=== PATIENT | female | born 1995 | race Caucasian/White ===

== ENCOUNTER → 2021-10-24 15:37 | Outpatient (CLI) | payer OTHER, SELFPAY ==
[2021-10-24 16:04] LABS: Add Manual Diff / Slide Review NO; Basophils Absolute Auto 100 /uL (0-100); Basophils Percent Auto 0.5 % (0-2); Eosinophils Absolute Auto 100 /uL (0-450); Eosinophils Percent Auto 1.1 % (2-4); Hematocrit 37.7 % (36-46); Hemoglobin 13.1 g/dL (12.0-16.0); Lymphocytes Absolute Auto 2600 /uL (1100-4500); Lymphocytes Percent Auto 27.1 % (25-40); Mean Corpuscular HGB Conc 34.7 % (30-36); Mean Corpuscular Volume 89.3 fL (80-100); Monocytes Absolute Auto 500 /uL (0-900); Monocytes Percent Auto 5.2 % (3-14); Neutrophils Absolute Auto 6400 /uL (1500-7000); Neutrophils Percent Auto 66.1 % (50-75); Platelet Count 403 X10^3/uL (150-400); Red Blood Cell Count 4.23 X10^6/uL (4.0-5.2); White Blood Cell Count 9.7 X10^3/uL (4.5-11.0)
[2021-10-24 16:10] LABS: Hemoglobin A1C% w Est Avg Glu 7.8 % (4.0-6.0)
[2021-10-24 17:37] LABS: Alanine Aminotransferase 12 IU/L (<35); Albumin 4.1 g/dL (3.5-5.0); Albumin Globulin Ratio 1.4 (1.0-2.8); Alkaline Phosphatase 53 U/L (38-126); Aspartate Aminotransferase 16 IU/L (14-36); BUN Creatinine Ratio 22.7 (6-22); Bilirubin Total 0.8 mg/dL (0.2-1.3); Blood Urea Nitrogen 10 mg/dL (7-17); Calcium 10.1 mg/dL (8.4-10.2); Carbon Dioxide 27 mmol/L (22-32); Chloride 102 mmol/L (98-107); Estimated Glomerular Filt Rate > 60.0 mL/min (>60); Globulin 2.9 g/dL (1.7-4.1); Glucose 267 mg/dL (70-100); HEMOLYSIS < 15 (0-50); Potassium 4.3 mmol/L (3.4-5.1); Sodium 134 mmol/L (137-145)
[2021-10-24 18:07] LABS: TSH w/ Reflex to FT4 2.39 uIU/mL (0.47-4.68)
[2021-10-24 18:29] LABS: Urine N gonorrhoeae NOT DETECTED
[2021-10-24 18:50] LABS: Urine Chlamydia NOT DETECTED
[2021-10-25 06:32] LABS: RPR Screen Non Reactive (Non Reactive)
[2021-10-25 08:47] LABS: Varicella IgG Antibody >4000 index (Immune >165)
[2021-10-27 21:42] LABS: Rubella Antibody IgG 84.2 IU/mL (>15)
[2021-10-27 22:06] LABS: HIV 1 & 2 Ab/Ag 4th Gen Combo NEGATIVE (NEGATIVE); Hep C Virus Ab w/Reflex Quant NEGATIVE s/c (NEGATIVE)
[2021-10-30 17:54] LABS: Hepatitis B Surface Antigen NEGATIVE s/c (NEGATIVE)
== END ==
PROVIDERS: Referring Provider Obstetrics & Gynecology; Visit Provider Obstetrics & Gynecology
DX: O99.280 Endocrine, nutritional and metabolic diseases complicating pregnancy, unspecified trimester (principal); Z3A.09 9 weeks gestation of pregnancy; Z11.3 Encounter for screening for infections with a predominantly sexual mode of transmission; E10.9 Type 1 diabetes mellitus without complications; E03.9 Hypothyroidism, unspecified
CPT/HCPCS: 36415; 80053; 80055; 83036; 84443; 86787; 86803; 86850; 86900; 86901; 87389; 87491; 87591

== ENCOUNTER → 2021-10-27 14:08 | Outpatient (CLI) | payer OTHER, SELFPAY ==
[2021-10-27 15:10] LABS: Appearance Urine UA SL CLOUDY; Bilirubin Urine UA NEGATIVE (NEGATIVE); Color Urine UA YELLOW; Glucose Urine UA 2+ g/dL (Negative); Ketones Urine UA NEGATIVE (NEGATIVE); Leukocyte Esterase Urine UA NEGATIVE (NEGATIVE); Nitrite Urine UA NEGATIVE (Negative); Occult Blood Urine UA NEGATIVE (Negative); Protein Urine UA NEGATIVE (Negative); Urobilinogen Urine UA 0.2 E.U./dL (0.2)
[2021-10-27 15:15] LABS: pH Urine UA 5.5 (4.5-8.0)
[2021-10-27 15:56] LABS: Collection Time Urine 24 Hours; Protein (Total) Urine Random < 5 mg/dL (0-12); Total Volume Urine 1500 mL
[2021-10-27 15:57] LABS: Total Protein 24 Hour Urine < 75 mg/day (42-225)
== END ==
PROVIDERS: Referring Provider Obstetrics & Gynecology; Visit Provider Obstetrics & Gynecology
DX: E10.9 Type 1 diabetes mellitus without complications (principal)
CPT/HCPCS: 81003; 84156; 87086

== ENCOUNTER → 2021-10-28 10:52 | Outpatient (CLI) | payer OTHER, SELFPAY ==
--- NOTE | 2021-10-29 14:30 | DIAB.INIT ---
Initial Diabetes Education Assessment Name: Miracle Moore Date: 10/28/21 Time: 11a-12p Dx: Type 1 diabetes in Provider: Joe BRIDGETT:04/22/22. Miracle was originally scheduled for in person visit, but mistakenly thought this was a virtual appt. Due to the urgency of her diagnosis, we changed this visit to a virtual visit. She consents to the use of [employer] system to complete this visit. Miracle reports T1DM dx since age 20. Originally misdiagnosed with T2DM. She has a referral for specialty, but has not been scheduled yet. She uses a CGM but not currently using an insulin pump. States her endo in [place] would like to defer this to specialty at at this time. currently injecting 50u Lantus daily (30u HS and 20u in the afternoon). She is splitting this dose due to fear of lows at night, but she is still waking with BG >95. The main barriers seem to be education related. Miracle is injecting insulin more frequently than usually recommended, injecting anytime her BG is >180 with a sliding scale she found online. Not currently counting carbs. Not currently using I:C ratio. Also injecting 30 minutes AFTER she eats, increasing her risk for hypoglycemia. Endorses frequent lows almost daily. Day time lows 3-4 x per week, which may be r/t the frequent novolog injections. Night time lows decreased with splitting her lantus dose per her report. Treats with juice and sometimes chips. Seems one issue in Miracle's diabetes care is that she has been seen by multiple professionals in [facility] telling her a number of ways to manage. Physical Activity: Not discussed today Self-Monitoring Blood Glucose: Uses Dexcom CGM. Keeps in range time: 70-180. FBG reported 120-150 usually and 1 hr after meals 140-180. BG described as above target. Diabetes Medications: Novolo-20u daily Lantus 50u daily Pertinent Labs: 10/2021 HgA1c 7.8% H Past Medical History: (Last Updated 10/27/21 @ 13:23 by Navid Diaz MD) Anxiety (~10/2020) DKA (diabetic ketoacidosis) (~12/2020) IDDM (insulin dependent diabetes mellitus) (~2005) Neuropathy associated with endocrine disorder (~10/2020) [place] teeth extracted x4, conscious sedation, no issues. Intervention: This participant was very receptive. Provided appropriate educational handouts. Discussed the following topics: Completed intake assessment. Discussed barriers to care. Plans to contact potentially I:C ratio of 1:15 to start When to take insulin: 10-15 min prior to meal Impact of lantus on FBG Carb counting review and handouts emailed insulin correction review, emailed correction chart hypoglycemia tx review Created SMART goals for patient self-care and success. Goals: Try to eat protein with each meal and snack take insulin prior to meal 10-15 mins Use I:C ratio and carb counting to determine insulin dose Treat lows as discussed: Rule of 15 Follow-up: JOSE ANGEL ESCALONA follow-up in 1 week Miracle certainly needs higher specialty care. The hope is that she can schedule with reinaldo. She requires quite a bit of education. We discussed the need for in person visits. She has concerns about finances and gas cost. Will try to couple visits with OB visits. Daya Ribeiro RDN, [facility] Certified Diabetes Care and Public Information Relations Manager P: [phone] Thank you for this referral
== END ==
PROVIDERS: Referring Provider Obstetrics & Gynecology; Visit Provider Obstetrics & Gynecology
DX: O24.019 Pre-existing type 1 diabetes mellitus, in pregnancy, unspecified trimester (principal)
CPT/HCPCS: G0108

== ENCOUNTER → 2021-11-05 07:47 | Outpatient (CLI) | payer OTHER, SELFPAY ==
--- NOTE | 2021-11-05 07:49 | DI.US.S_ITS ---
PROCEDURE: US OB <= 14 WEEKS FETUS INDICATIONS: DATING. HISTORY OF TYPE 1 DIABETES. OUTSIDE/PRIOR DATING DATA: Last menstrual period (LMP): Unknown. LMP-based estimated date of delivery (BRIDGETT): Not applicable. First dating scan (date and location): Current study, 11/05/21. Estimated date of delivery (BRIDGETT) from first dating scan: 05/25/22. The calculations are made using the first-trimester ultrasound BRIDGETT of 05/25/22. TECHNIQUE: Real-time scanning was performed of the fetus and maternal pelvic organs, with image documentation. COMPARISON: None. FINDINGS: Embryo: An intrauterine is present including a single pole with an average crown-rump length of 4.37 cm corresponding to an 11 week two day plus or minus seven days gestation. There is detectable cardiac activity in the fetus at a rate of 160 beats per minute. A normal yolk sac is present. Heart rate: 160 Maternal organs: The cervix is closed. The uterus is anteverted. There is a fundal intrauterine gestational sac. A heterogeneous, but inactive perigestational hemorrhage is present along the anterior margin encompassing less than 10% of the sac circumference. Both ovaries appear normal. Possible right ovarian corpus luteum. Large postvoid residual in the maternal urinary bladder of 132 cc. IMPRESSION: 1. Single living intrauterine with a gestational age of 11 weeks two days by crown-rump length and estimated due date of 05/25/22. 2. Small inactive perigestational hemorrhage. 3. Large postvoid residual in the maternal urinary bladder. Consider cystitis. We strive to produce accurate, complete, and clear reports of imaging services. To assist us in improving patient care, this report was composed using standard report templates and voice recognition software. Therefore, it may contain abnormal punctuation, insertions and/or omissions. Occasional wrong-word or sound-alike substitutions may occur. Though we review the report and make efforts to correct it, we do recommend that the report be read carefully in proper context to recognize any text inaccuracies. Dictated by: Toya Downey M.D. on 11/05/2021 at 8:40 Approved by: Toya Downey M.D. on 11/05/2021 at 8:44
== END ==
PROVIDERS: PCP Obstetrics & Gynecology; Referring Provider Obstetrics & Gynecology; Visit Provider Obstetrics & Gynecology
DX: Z36.87 Encounter for antenatal screening for uncertain dates (principal); O24.011 Pre-existing type 1 diabetes mellitus, in pregnancy, first trimester; Z3A.11 11 weeks gestation of pregnancy
CPT/HCPCS: 76801; 76817

== ENCOUNTER → 2021-11-05 08:30 | Outpatient (CLI) | payer OTHER, SELFPAY ==
--- NOTE | 2021-11-05 09:54 | DIAB.FU ---
Follow-up Diabetes Education Assessment Name: Miracle Moore Date: 11/05/21 Time: 505-189q Dx: Type 1 diabetes in Provider: Joe BRIDGETT:[birth year]. Miracle presents today with , Flavio. States she has started taking Novolog before meals instead of after. Today she describes using a sliding scale (not correction scale). This seems to result in highs and lows, chasing blood sugars. She is running high in the evening. Her and her base her Lantus dose on her evening readings. States she often skips breakfast and eats q 3 hours after that. Has been practicing carb counting since last visit. Has cut out caffeine and sugared beverages. Today she describes a long history of high HgA1c results and repeat DKA events. Diet recall: Wake: 8-11a 12p: chicken strips and pasta 3p: triscuits or nuts or PB 630p: biscuits and gravy with carrots and green beans, chicken 9p: PB or pickle Physical Activity: Recently started walking daily for 15 mins in the snow. She is originally from [place] and enjoys this weather. Encouraged safety with activity. Self-Monitoring Blood Glucose: Brought dexcom and downloaded reports via [employer]. Seems that the reduced lantus from 50 u to 20-35u daily may be contributing to hyperglycemia late into grinder gear. She has significant highs in evening between 945p and 415pm. This may be related to inadequate lantus coverage. She worries that increases in Lanuts could cause lows at night. More likely that novolog and SSI would cause such hypo events. Reports indicate the followin day reports Target range set: 70-180 mg/dL Avg B Time in range (TIR): 37% High: 42% Very high: 20% low: <1% very low: <1% Diabetes Medications: Lantus 20-35u HS Novolog with SSI Pertinent Labs: 10/2021 HgA1c 7.8% H Past Medical History: (Last Updated 10/27/21 @ 13:23 by Navid Diaz MD) Anxiety (~10/2020) DKA (diabetic ketoacidosis) (~12/2020) IDDM (insulin dependent diabetes mellitus) (~2005) Neuropathy associated with endocrine disorder (~10/2020) [place] teeth extracted x4, conscious sedation, no issues. Intervention: This participant was very receptive. Provided appropriate educational handouts. Discussed the following topics: Recent blood sugar results and trends Action and duration of lantus vs novolog basing lantus off FBG and not current BG I:C ratio and correction vs SSI plate method, carb counting, carb recs per meal and snacks, pairing macronutrients, meal timing resources for carb counting: calorie sadaf, fooducate review of clarity reports and hyperglycemia trends as well as hypo how to use [employer] pasquale functions: adding exercise, carbs, insulin to reports Time in range and goal to increase Exercise for and BG mgmgnt, and safety Created SMART goals for patient self-care and success. Goals: Try to eat protein with each meal and snack- in progress take insulin prior to meal 10-15 mins- met Use I:C ratio and carb counting to determine insulin dose- in progress Treat lows as discussed: Rule of 15- in progress Try to eat q 3-4 hours- new Add events to dexcom pasquale: exercise, insulin, carb intake- new try to walk or exercise safely daily- new Try I:C ratio of 1:15 - new Try 30u Lantus q night - new Follow-up: JOSE ANGEL ESCALONA follow-up WednesdayNov 14 prior to OB apt Miracle certainly needs higher specialty care. The hope is that she can schedule with [facility]. She requires quite a bit of education given the different information she has acquired in different states. We discussed the need for in person visits. She has concerns about finances and gas cost. Will continue to try to couple visits with OB visits. Daya Ribeiro RDN, [facility] Certified Diabetes Care and Retail Store Clerk P: [phone] Thank you for this referral
== END ==
PROVIDERS: PCP Obstetrics & Gynecology; Referring Provider Obstetrics & Gynecology; Visit Provider Obstetrics & Gynecology
DX: O24.012 Pre-existing type 1 diabetes mellitus, in pregnancy, second trimester (principal)
CPT/HCPCS: G0108

== ENCOUNTER → 2021-11-14 12:50 | Outpatient (CLI) | payer OTHER, SELFPAY ==
--- NOTE | 2021-11-14 17:24 | DIAB.MNT ---
Addendum entered by Daya Ribeiro 11/18/21 17:33: Called today to review BG over the phone. No answer today. LVM encouraging call back. We have f/u scheduled this as well. Original Note: Initial Diabetes Medical Nutrition Therapy Assessment Name: Miracle Moore Date: 11/11/21 Time: 1-230p Dx: Type I Diabetes in BRIDGETT: 05/25/22 Miracle presents today with , Flavio. States her Bg have much improved. No longer using SSI she printed from the internet. In reviewing her dexcom, they have improved but still high at night. States she is covering with correction and I:C of 1:15 as discussed, but also endorses almost 100g carbs at dinner at times. Difficult to determine if she is having hyperglycemia at night due to high carb intake, needing a tighter I:C ratio, or if Lantus is wearing off by night. Her endo has retired and has not received a call for new endo. States it is difficult to get through due to [facility] process. Reports some nausea r/t . Still able to eat, but eating schedule indicates low intake during the day and larger portions at night. States this is how her appetite normally is. Also endorses recent dental work, impacting ability to eat. This has improved. Diet Recall: 12p: hot dog no bun 3p: peanut butter 7p: yasmine soda noodles OR hamburger helper with rice OR mac n cheese box with hot dogs (68-100g CHO) 9p: peanut butter or pickles Anthropometrics: Wt: 162# Prepreg wt: 145# Physical Activity: No program. Some inconsistent walking. Has a dog she likes to walk. has a bad knee, and she does not like to walk alone. Self-Monitoring Blood Glucose: Still above targets for but much improved. Reports FBG more recently 120-150. Plans to see [facility] specialist on 11/27/21. States she has had a low since last visit and tx with juice. Unclear etiology of low exactly. Ran out of juice at her house, but she has sugar and glucose tabs. Today : Target range set: 70-180 mg/dL Time in range (TIR): 53% High: 34% Very high: 12% low: <1% very low: <1% Last visit: Target range set: 70-180 mg/dL Avg B Time in range (TIR): 37% High: 42% Very high: 20% low: <1% very low: <1% Diabetes Medications: Lantus 30-35u HS Novolog I:C ratio 1:15 c correction 1:50 Pertinent Labs: 10/2021 HgA1c 7.8% H Past Medical History: (Last Updated 11/06/21 @ 09:13 by Breanna You RN) Anxiety (~10/2020) Chicken pox (~1999) DKA (diabetic ketoacidosis) (~12/2020) IDDM (insulin dependent diabetes mellitus) (~2015) Neuropathy associated with endocrine disorder (~10/2020) [place] teeth extracted x4, conscious sedation, no issues. Nutrition Rx: Carbohydrates: Meal: B: 30g L: 45-60g D: 45-60g Snack: 15-30g Nutrition Diagnosis: - Excessive CHO intake r/t nutrition knowledge deficit and low intake earlier in the day aeb diet recall - Physical inactivity r/t stage of change aeb pt report Intervention: This participant was very receptive. Provided appropriate educational handouts. Discussed the following topics: Reviewed tx for lows and substitutes for juice Discussed increasing lantus to reduce FBG Reviewed BG goals for Reviewed diet, carb counting, spreading carbs through the day, pairing macros, and built a meal plan based on her food preferences Encouraged safe physical activity Created SMART goals for patient self-care and success. Goals: Try to eat protein with each meal and snack- in progress Use I:C ratio and carb counting to determine insulin dose- met Treat lows as discussed: Rule of 15- in progress Try to eat q 3-4 hours- in progress Add events to [employer] pasquale: exercise, insulin, carb intake- in progress try to walk or exercise safely daily- not met Try I:C ratio of 1:15 - met Try 30u Lantus q night - met Reduce carbs at dinner- new Increase lantus 1-2u q 2-3 days until FBG in range- new Walk 30min 2-3 x per week- new Purchase more juice - new Follow-up: JOSE ANGEL ESCALONA follow-up on Wednesday over the phone and 1:1 next Daya Ribeiro RDN, [facility] Certified Diabetes Care and Structural Steel Fitter P: [phone] Thank you for this referral
== END ==
PROVIDERS: PCP Obstetrics & Gynecology; Referring Provider Obstetrics & Gynecology; Visit Provider Obstetrics & Gynecology
DX: O24.011 Pre-existing type 1 diabetes mellitus, in pregnancy, first trimester (principal)
CPT/HCPCS: 97802

== ENCOUNTER → 2021-11-20 14:46 | Outpatient (CLI) | payer OTHER, SELFPAY ==
--- NOTE | 2021-11-20 14:49 | DIAB.FU ---
Follow-up Diabetes Education Assessment Name: Miracle Moore Date: 11/20/21 Time: 2-245p Dx: Type I Diabetes in BRIDGETT: 05/25/22 Weeks: 13-14 Miracle presents for virtual follow-up using [employer] platform. Miracle consented to participating in this virtual visit. States she has not been feeling well. Endorses cold symptoms though also reports increased frequency of urination. BG have continued to improve. Has h/o of DKA with unknown upper UTI per her report. Has ketone strips at home but has not tested. States she has been working on reducing carb portions at dinner. increased pro and vegetable intake. Incorporating breakfast now. Has been using insulin to carb 1:15 ratio for breakfast and lunch ; 1:10 for dinner given elevations in evening. She is using much more Lantus than Novolog daily currently. FBG continue above target in the 150-160s, one readings of 90. Has recently increased Lanuts to 34u and plans to increase tonight by 2u. States that Flavio, , gave too much Novolog the other night. May benefit from more communication about insulin doses. Has been worried about how hyperglycemia can impact baby. Had MFM visit yesterday with ultrasound and baby is healthy. Has [facility] specialist appt on 12/02. Physical Activity: Has started walking 2 x this week. Self-Monitoring Blood Glucose: Readings cont above target but cont to improve. Today: Target range set: 70-180 mg/dL Time in range (TIR): 59% High: 30% Very high: 9% low: <1% very low: <1% 11/14/21: Target range set: 70-180 mg/dL Time in range (TIR): 53% High: 34% Very high: 12% low: <1% very low: <1% 11/05/21: Target range set: 70-180 mg/dL Avg B Time in range (TIR): 37% High: 42% Very high: 20% low: <1% very low: <1% Diabetes Medications: Lantus 34u HS Novolog I:C ratio 1:15 breakfast and lunch; 1:10 dinner c correction 1:50 Pertinent Labs: 10/2021 HgA1c 7.8% H Past Medical History: (Last Updated 11/06/21 @ 09:13 by Breanna You RN) Anxiety (~10/2020) Chicken pox (~1999) DKA (diabetic ketoacidosis) (~12/2020) IDDM (insulin dependent diabetes mellitus) (~2015) Neuropathy associated with endocrine disorder (~10/2020) [place] teeth extracted x4, conscious sedation, no issues. Intervention: This participant was very receptive. Provided appropriate educational handouts. Discussed the following topics: Recent blood sugar results and trends BG goals for and titrating insulin to meet needs FBG: <95 ; 1hr: <140; 2hr: <120 checking ketones and when to call provider carb intake and diet changes Created SMART goals for patient self-care and success. Goals: Reduce carbs at dinner- met Increase lantus 1-2u q 2-3 days until FBG in range- met Walk 30min 2-3 x per week- met/in progress Purchase more juice - met Adjust morning/lunch I:C (1:10 or 1:12)to meet pc BG goals- new Check urine ketones- new Discuss insulin doses with prior to injection- new Follow-up: JOSE ANGEL ESCALONA follow-up in 1 week virtually Daya Ribeiro RDN, [facility] Certified Diabetes Care and Electro Winning Operator P: [phone] Thank you for this referral
== END ==
PROVIDERS: PCP Obstetrics & Gynecology; Referring Provider Obstetrics & Gynecology; Visit Provider Obstetrics & Gynecology
DX: O24.011 Pre-existing type 1 diabetes mellitus, in pregnancy, first trimester (principal); Z3A.13 13 weeks gestation of pregnancy
CPT/HCPCS: G0108

== ENCOUNTER → 2021-12-16 10:05 | Outpatient (CLI) | payer OTHER, SELFPAY ==
[2021-12-16 11:12] LABS: Hemoglobin A1C% w Est Avg Glu 7.6 % (4.0-6.0)
[2021-12-18 20:45] LABS: AFP Value 53.3 ng/mL (.); Gestational Age Ultrasound (.); Insulin Dep Diabetes No (.); OSBR Risk 1IN 3048 (.); Results Report (.); Test Results *Screen Negative* (.)
== END ==
PROVIDERS: PCP Obstetrics & Gynecology; Referring Provider Obstetrics & Gynecology; Visit Provider Obstetrics & Gynecology
DX: Z34.82 Encounter for supervision of other normal pregnancy, second trimester (principal); Z3A.17 17 weeks gestation of pregnancy
CPT/HCPCS: 36415; 82105; 83036

== ENCOUNTER 2022-04-01 15:25 | Outpatient (CLI) | payer OTHER, SELFPAY | END 2022-04-01 16:25 | disposition home or self-care (01) | LOC: LABOR 15:51 → OB 04-02 07:13 | PROVIDERS: PCP Obstetrics & Gynecology; Referring Provider Obstetrics & Gynecology; Visit Provider Obstetrics & Gynecology | DX: O24.013 Pre-existing type 1 diabetes mellitus, in pregnancy, third trimester (principal); O47.03 False labor before 37 completed weeks of gestation, third trimester; Z3A.32 32 weeks gestation of pregnancy | CPT/HCPCS: 59025; G0378; G0379 ==

== ENCOUNTER 2022-04-06 10:19 | Outpatient (CLI) | payer OTHER, SELFPAY ==
--- NOTE | 2022-04-06 11:00 | P.TNLD_ITS ---
Visit Information Visit Information Date of evaluation: 04/06/22 Primary OB Provider: Navid Diaz On-call OB Provider: Jolie Manuel Reason for Evaluation: Yes non-stress test non-stress test reason: diabetes Vital Signs Vital Signs: BP 117/72, P 90 T 36.5 [facility] Medical History (Updated 04/06/22 @ 11:06 by Jolie Manuel MD) Anxiety (~10/2020) Chicken pox (~1999) DKA (diabetic ketoacidosis) (~12/2020) IDDM (insulin dependent diabetes mellitus) (~2015) Neuropathy associated with endocrine disorder (~10/2020) Surgical History (Updated 10/23/21 @ 18:18 by Breanna You RN) [place] teeth extracted Family History (Updated 11/06/21 @ 09:18 by Breanna You RN) Father Diabetes mellitus Colon cancer Brother History of heart disease Scoliosis Hypertension Sister Diabetes mellitus Thyroid disease Grandfather Parkinson's disease Grandmother Dementia Pressure ulcer Grandfather Colon cancer Mother Healthy female adult Grandmother Type 2 diabetes mellitus Social History marital status: number of children: 0 household members: spouse lives independently: Yes caregiver/support person: No housing: apartment pets and animals: Yes (2 dogs: 1 is a little tempermental- aware.) education level: high school occupational status: unemployed current occupational exposures/hazards: No star/lutheran: Sabianism special star needs: No seatbelt use: always helmet use: Yes water heater temp set < 120 deg: Yes working smoke detector in home: Yes fire extinguisher in home: Yes carbon monox detector in home: Yes firearms in home: Yes do you feel safe at home: Yes Smoking Status: Never smoker second hand exposure: No ( vaping with non-nicotine products in the house but not near her. ) alcohol intake: former substance use type: does not use during the past year weight has: decreased > 10 lbs well-balanced diet: about half the time caffeine: No Type(s) of exercise: walking and normal ROM and activity frequency: daily duration: 15-30 minutes/day Evaluation Evaluation Baseline heart rate: 140 Variability: Moderate (11-25) monitor accelerations: Present Monitor Decelerations: Absent Contraction Frequency (minutes): 0 Category of Tracing: Reactive Diagnosis, Plan/Disposition Final Diagnosis (1) Type 1 diabetes mellitus: Status: Acute (2) 33 weeks gestation of : Status: Acute Plan/Disposition Plan: Reactive NST. Continue twice weekly NSTs, weeekly OB appointments OB Disposition: home
== END 2022-04-06 11:04 | disposition home or self-care (01) ==
LOC: LABOR 10:21 → OB 04-08 14:27
PROVIDERS: PCP Obstetrics & Gynecology; Referring Provider Obstetrics & Gynecology; Visit Provider Obstetrics & Gynecology
DX: O24.013 Pre-existing type 1 diabetes mellitus, in pregnancy, third trimester (principal); Z3A.33 33 weeks gestation of pregnancy
CPT/HCPCS: 59025; G0378; G0379

== ENCOUNTER 2022-04-09 12:38 | Outpatient (CLI) | payer OTHER, SELFPAY ==
--- NOTE | 2022-04-09 13:17 | DI.US.S_ITS ---
PROCEDURE: US OB BIOPHYSICAL PROFILE INDICATIONS: DECEL ON NONSTRESS TEST OUTSIDE/PRIOR DATING DATA: Last menstrual period (LMP): Not known LMP-based estimated date of delivery (BRIDGETT): Not applicable First dating scan (date and location): November 05, 2021. Estimated date of delivery (BRIDGETT) from first dating scan: May 25, 2022 The calculations are made using the ultrasound BRIDGETT of May 25, 2022. TECHNIQUE: Real-time scanning was performed of the fetus for biophysical profile, with image documentation. Color and pulse Doppler interrogation was also performed of the umbilical artery near its insertion into the placenta. Endovaginal scanning: Perform COMPARISON: None. FINDINGS: General: A single living intrauterine gestation is present. Presentation: Breech. Placenta: Placental position is anterior , without previa. Amniotic fluid index: 12.7 cm, normal range is 5-24 cm. Single deepest vertical pocket is 4.8 cm. heart rate: 152 beats per minute. Maternal cervical canal: Not visualized. Estimated gestational age from initial scan: 33 weeks 3 days Biophysical profile: Tone: 2 points. Movement: 2 points. Respiration: 2 points. Largest pocket of fluid: 2 points. Umbilical artery Doppler: SD ratios 3.2, 3.2 IMPRESSION: 1. Single living intrauterine . 2. Biophysical profile score 8/8. 3. Normal cord Doppler. 4. Normal amniotic fluid index. Dictated by: Lucía Dudley MD, PhD on 04/09/2022 at 14:15 Approved by: Lucía Dudley MD, PhD on 04/09/2022 at 14:18
--- NOTE | 2022-04-09 14:24 | PM.OBTRLD ---
Visit Information Visit Information Date of evaluation: 04/09/22 Primary OB Provider: Navid Diaz Reason for Evaluation: Yes non-stress test Comments/Additional reasons for admission: Type 1 diabetes, IUP 33+ weeks EGA Vital Signs Vital Signs: 117/71, P=88, 35.8 [facility] Medical History (Updated 04/09/22 @ 14:20 by Navid Diaz MD) Anxiety (~10/2020) Chicken pox (~1999) DKA (diabetic ketoacidosis) (~12/2020) IDDM (insulin dependent diabetes mellitus) (~2015) Neuropathy associated with endocrine disorder (~10/2020) Surgical History (Updated 10/23/21 @ 18:18 by Breanna You RN) [place] teeth extracted Family History (Updated 11/06/21 @ 09:18 by Breanna You RN) Father Diabetes mellitus Colon cancer Brother History of heart disease Scoliosis Hypertension Sister Diabetes mellitus Thyroid disease Grandfather Parkinson's disease Grandmother Dementia Pressure ulcer Grandfather Colon cancer Mother Healthy female adult Grandmother Type 2 diabetes mellitus Social History marital status: number of children: 0 household members: spouse lives independently: Yes caregiver/support person: No housing: apartment pets and animals: Yes (2 dogs: 1 is a little tempermental- aware.) education level: high school occupational status: unemployed current occupational exposures/hazards: No star/zoroastrian: [employer] special star needs: No seatbelt use: always helmet use: Yes water heater temp set < 120 deg: Yes working smoke detector in home: Yes fire extinguisher in home: Yes carbon monox detector in home: Yes firearms in home: Yes do you feel safe at home: Yes Smoking Status: Never smoker second hand exposure: No ( vaping with non-nicotine products in the house but not near her. ) alcohol intake: former substance use type: does not use during the past year weight has: decreased > 10 lbs well-balanced diet: about half the time caffeine: No Type(s) of exercise: walking and normal ROM and activity frequency: daily duration: 15-30 minutes/day Review of Systems Review of Systems Narrative: Problem-specific ROS positives included in HPI Exam HENMT Head: normal to inspection, normocephalic and atraumatic Face and sinus: face symmetric Eyes General: appearance normal, both eyes and all related structures Neck Neck: normal visual inspection Resp Effort & Inspection: normal respiratory effort and able to speak in complete sentences GI Inspection: normal to inspection Palpation: soft and no hepatosplenomegaly External Female Exam: other (Deferred) Uterus Location (Fundal Height): 34 Presentation: vertex Estimated Weight (lbs): 4 Extrem Right lower extremity: normal to inspection Psych Appearance: grossly normal Mental Status: mental status grossly normal Speech and Movement: speech and movement normal Mood: congruent mood Affect: normal affect Attitude: cooperative Thought Process: normal Thought Content: normal Judgment: judgment good Evaluation Evaluation Baseline heart rate: 145 Variability: Moderate (11-25) monitor accelerations: Present Monitor Decelerations: Late (A single deceleration w/ late morphology @ 1258.) Category of Tracing: Reactive Status: Category l Comments: BPP 8/8, Dopplers normal. No additional decelerations noted after the single deceleration from 145 down to 120 BPM w/ prolonged contraction @ 1258 PM. Diagnosis, Plan/Disposition Final Diagnosis (1) Type 1 diabetes mellitus: Status: Acute (2) : Status: Acute Plan/Disposition Plan: Continue twice weekly antepartum testing with induction/delivery planned for [facility] T[facility]. OB Disposition: home
== END 2022-04-09 14:10 | disposition home or self-care (01) ==
LOC: LABOR 13:51 → OB 04-10 11:36
PROVIDERS: Referring Provider Obstetrics & Gynecology; Visit Provider Obstetrics & Gynecology
DX: O24.013 Pre-existing type 1 diabetes mellitus, in pregnancy, third trimester (principal); Z3A.33 33 weeks gestation of pregnancy
CPT/HCPCS: 59025; 59050; 76819; 76820; G0378; G0379

== ENCOUNTER 2022-04-13 14:40 | Outpatient (CLI) | payer OTHER, SELFPAY ==
--- NOTE | 2022-04-15 06:16 | PM.OBTRLD ---
Visit Information Visit Information Date of evaluation: 04/13/22 Primary OB Provider: Navid Diaz On-call OB Provider: Anna Akbar Reason for Evaluation: Yes non-stress test non-stress test reason: diabetes (Type 1) [facility] Medical History (Updated 04/09/22 @ 14:20 by Navid Diaz MD) Anxiety (~10/2020) Chicken pox (~1999) DKA (diabetic ketoacidosis) (~12/2020) IDDM (insulin dependent diabetes mellitus) (~2015) Neuropathy associated with endocrine disorder (~10/2020) Surgical History (Updated 10/23/21 @ 18:18 by Breanna You, ARTURO) [place] teeth extracted Family History (Updated 11/06/21 @ 09:18 by Breanna You RN) Father Diabetes mellitus Colon cancer Brother History of heart disease Scoliosis Hypertension Sister Diabetes mellitus Thyroid disease Grandfather Parkinson's disease Grandmother Dementia Pressure ulcer Grandfather Colon cancer Mother Healthy female adult Grandmother Type 2 diabetes mellitus Social History marital status: number of children: 0 household members: spouse lives independently: Yes caregiver/support person: No housing: apartment pets and animals: Yes (2 dogs: 1 is a little tempermental- aware.) education level: high school occupational status: unemployed current occupational exposures/hazards: No star/alevism: Roman Catholic special star needs: No seatbelt use: always helmet use: Yes water heater temp set < 120 deg: Yes working smoke detector in home: Yes fire extinguisher in home: Yes carbon monox detector in home: Yes firearms in home: Yes do you feel safe at home: Yes Smoking Status: Never smoker second hand exposure: No ( vaping with non-nicotine products in the house but not near her. ) alcohol intake: former substance use type: does not use during the past year weight has: decreased > 10 lbs well-balanced diet: about half the time caffeine: No Type(s) of exercise: walking and normal ROM and activity frequency: daily duration: 15-30 minutes/day Evaluation Evaluation Baseline heart rate: 135 Variability: Moderate (11-25) monitor accelerations: Present Monitor Decelerations: Absent Contraction Frequency (minutes): 8 Uterine Contraction Intensity: Mild Category of Tracing: Reactive Diagnosis, Plan/Disposition Plan/Disposition Plan: Assessment: 26-year-old 2 para 0 at 34-,2/7 weeks gestation with type 1 diabetes Reactive nonstress test Occasional contractions, patient not feeling Plan: Discharge to home kick counts Follow-up with Dr. Diaz as scheduled OB Disposition: home
== END 2022-04-13 15:37 | disposition home or self-care (01) ==
LOC: LABOR 15:06 → OB 04-15 10:36
PROVIDERS: Referring Provider Obstetrics & Gynecology; Visit Provider Obstetrics & Gynecology
DX: O24.013 Pre-existing type 1 diabetes mellitus, in pregnancy, third trimester (principal); E10.9 Type 1 diabetes mellitus without complications; Z3A.34 34 weeks gestation of pregnancy
CPT/HCPCS: 59025; G0378; G0379

== ENCOUNTER 2022-04-16 12:34 | Outpatient (CLI) | payer OTHER, SELFPAY ==
--- NOTE | 2022-04-16 13:04 | P.TNLD_ITS ---
Visit Information Visit Information Date of evaluation: 04/16/22 Primary OB Provider: Navid Diaz On-call OB Provider: Navid Diaz Reason for Evaluation: Yes non-stress test Comments/Additional reasons for admission: Twice weekly NST's due to Type 1 DM [facility] Medical History (Updated 04/29/22 @ 15:19 by Navid Diaz MD) Anxiety (~10/2020) Chicken pox (~1999) DKA (diabetic ketoacidosis) (~12/2020) IDDM (insulin dependent diabetes mellitus) (~2015) Neuropathy associated with endocrine disorder (~10/2020) Surgical History (Updated 10/23/21 @ 18:18 by Breanna You RN) [place] teeth extracted Family History (Updated 11/06/21 @ 09:18 by Breanna You RN) Father Diabetes mellitus Colon cancer Brother History of heart disease Scoliosis Hypertension Sister Diabetes mellitus Thyroid disease Grandfather Parkinson's disease Grandmother Dementia Pressure ulcer Grandfather Colon cancer Mother Healthy female adult Grandmother Type 2 diabetes mellitus Social History marital status: number of children: 0 household members: spouse lives independently: Yes caregiver/support person: No housing: apartment pets and animals: Yes (2 dogs: 1 is a little tempermental- aware.) education level: high school occupational status: unemployed current occupational exposures/hazards: No star/faith: Pentecostalism special star needs: No seatbelt use: always helmet use: Yes water heater temp set < 120 deg: Yes working smoke detector in home: Yes fire extinguisher in home: Yes carbon monox detector in home: Yes firearms in home: Yes do you feel safe at home: Yes Smoking Status: Never smoker second hand exposure: No ( vaping with non-nicotine products in the house but not near her. ) alcohol intake: former substance use type: does not use during the past year weight has: decreased > 10 lbs well-balanced diet: about half the time caffeine: No Type(s) of exercise: walking and normal ROM and activity frequency: daily duration: 15-30 minutes/day Evaluation Evaluation Baseline heart rate: 135 Variability: Moderate (11-25) monitor accelerations: Present Monitor Decelerations: Absent Category of Tracing: Reactive Status: Category l Diagnosis, Plan/Disposition Final Diagnosis (1) GBS (group B Streptococcus carrier), +RV culture, currently : Status: Acute (2) Peripheral neuropathy due to metabolic disorder: Status: Acute (3) Type 1 diabetes mellitus: Status: Acute (4) : Status: Acute
== END 2022-04-16 13:11 | disposition home or self-care (01) ==
LOC: LABOR 12:54 → OB 04-20 10:50
PROVIDERS: Referring Provider Obstetrics & Gynecology; Visit Provider Obstetrics & Gynecology
DX: O24.013 Pre-existing type 1 diabetes mellitus, in pregnancy, third trimester (principal); E10.9 Type 1 diabetes mellitus without complications; Z3A.34 34 weeks gestation of pregnancy
CPT/HCPCS: 59025; G0378; G0379

== ENCOUNTER 2022-04-17 09:14 | Emergency (ER) | payer OTHER, SELFPAY ==
[2022-04-17 09:18] VITALS: BP 117/71; PULSE 81; RESP 16; TEMP 36.2; O2SAT 100; BMI 30.2
[2022-04-17 10:05] LABS: Bacteria Urine None Seen; Culture Indicated Urine Cult Not Indicated; RBC Urine None Seen (0-5/HPF); Squamous Epithelial Cell Urine 5-10 /HPF (0-5/HPF); WBC Urine 0-1/HPF (0-5/HPF)
[2022-04-17 10:16] VITALS: BP 124/77; PULSE 73; RESP 18; O2SAT 97
[2022-04-17 10:30] VITALS: BP 122/76; PULSE 72; RESP 13; O2SAT 98
--- NOTE | 2022-04-17 10:38 | ED.GENADULT ---
HPI - General Adult General Chief complaint: Diabetic Problem Stated complaint: Prabhakar blood sugar 35 weeks Time Seen by Provider: 04/17/22 10:22 Source: patient Mode of arrival: Ambulatory History of Present Illness HPI narrative: Patient is a 26-year-old female history of insulin-dependent diabetes, apparently 34 weeks and 4 days presenting today with elevated glucose. Says yesterday which she was seen evaluated by OBGYN diagnosed with a yeast infection. However last night her continuous glucose monitor said that her glucose was in the 200s. She woke up and gave herself insulin multiple times which is abnormal. She denies any nausea vomiting or abdominal pain. She has previously been in DKA but does not feel like she is in DKA now. Related Data Home Medications Medication Instructions Recorded Confirmed prenrocio.vits,georgiana,[id number] 1 tab PO DAILY 10/23/21 03/11/22 insulin aspart U-100 100 unit/mL 4 - 8 unit SUBCUT TID PRN 11/06/21 03/11/22 (3 mL) subcutaneous pen (Novolog Flexpen U-100 Insulin aspart) insulin glargine 100 unit/mL 35 unit SUBCUT .hs 11/06/21 03/11/22 subcutaneous solution (Lantus U-100 Insulin) Previous Rx's Medication Instructions Recorded ondansetron 4 mg disintegrating 4 mg PO Q8H nausea #20 tabs 11/17/21 tablet metoclopramide HCl 10 mg tablet 10 mg PO Q6H PRN nausea and 12/16/21 (Reglan) vomiting #60 tabs fluconazole 150 mg tablet 150 mg PO Q3D 2 doses #2 tabs 04/16/22 (Diflucan) Allergies Allergy/AdvReac Type Severity Reaction Status Date / Time clindamycin AdvReac Severe Vomiting Verified 04/17/22 11:07 Review of Systems Review of Systems Narrative: GENERAL: Denies chills, fatigue, malaise, fever, sweats, travel HEENT: Denies sinus pain, ear pain, sore throat, difficulty swallowing, neck pain RESPIRATORY: Denies dyspnea, cough, wheezing, hemoptysis, sputum. CARDIOVASCULAR: Denies chest pain, palpitations, orthopnea, edema GASTROINTESTINAL: Denies nausea, vomiting, abdominal pain, diarrhea, constipation, melena. : Denies dysuria, frequency, incontinence, hematuria, urinary retention, flank pain. MUSCULOSKELETAL: Denies weakness, joint pain, or bony pain SKIN: No rash, no erythema, no pruritus NEUROLOGIC: Denies weakness, dizziness, headache, numbness, change in speech, confusion PSYCHIATRIC: No concerning psychosocial issues. 12 point review of systems is negative except for those stated above and HPI Patient History Medical History (Updated 04/17/22 @ 12:09 by Yolande Lujan DO) Anxiety (~10/2020) Chicken pox (~1999) DKA (diabetic ketoacidosis) (~12/2020) IDDM (insulin dependent diabetes mellitus) (~2015) Neuropathy associated with endocrine disorder (~10/2020) Surgical History (Updated 10/23/21 @ 18:18 by Breanna Yuo RN) [place] teeth extracted Family History (Updated 11/06/21 @ 09:18 by Breanna You RN) Father Diabetes mellitus Colon cancer Brother History of heart disease Scoliosis Hypertension Sister Diabetes mellitus Thyroid disease Grandfather Parkinson's disease Grandmother Dementia Pressure ulcer Grandfather Colon cancer Mother Healthy female adult Grandmother Type 2 diabetes mellitus Social History marital status: number of children: 0 household members: spouse lives independently: Yes caregiver/support person: No housing: apartment pets and animals: Yes (2 dogs: 1 is a little tempermental- aware.) education level: high school occupational status: unemployed current occupational exposures/hazards: No star/anglican: Worship special star needs: No seatbelt use: always helmet use: Yes water heater temp set < 120 deg: Yes working smoke detector in home: Yes fire extinguisher in home: Yes carbon monox detector in home: Yes firearms in home: Yes do you feel safe at home: Yes Smoking Status: Never smoker second hand exposure: No ( vaping with non-nicotine products in the house but not near her. ) alcohol intake: former substance use type: does not use during the past year weight has: decreased > 10 lbs well-balanced diet: about half the time caffeine: No Type(s) of exercise: walking and normal ROM and activity frequency: daily duration: 15-30 minutes/day Smoking Status: Never smoker alcohol intake frequency: holidays/special occasions only Substance Use Type: does not use Exam Initial Vital Signs Initial Vital Signs: Vital Signs Temperature 97.1 F L 04/17/22 09:18 Pulse Rate 81 04/17/22 09:18 Respiratory Rate 16 04/17/22 09:18 Blood Pressure 117/71 04/17/22 09:18 Pulse Oximetry 100 04/17/22 09:18 Oxygen Delivery Method 04/17/22 09:18 GENERAL: Alert well-appearing 26 year female and in no acute distress. HEENT: Head atraumatic,EOMI, pupils reactive, face symmetric, moist mucous membranes CARDIOVASCULAR: Regular rate and rhythm without murmurs, rubs or gallops. RESPIRATORY: Breath sounds equal bilaterally, no wheezes rales or rhonchi. ABDOMEN: Soft, gravid nontender : No CVA tenderness EXTREMITIES: Normal range of motion, no clubbing or edema. Neurovascularly intact NEUROLOGICAL: Alert and oriented x4 no cranial nerve deficits SKIN: Warm, dry, no laceration, no petechiae, no rashes or lesions. Course Orders Ordered: ED Orders 04/17/22 10:54 CBC Auto Diff [Complete Blood Count AUTO DIFF] Stat CMP [Comprehensive Metabolic Panel] Stat Discontinued Medications Sodium Chloride (Normal Saline 0.9%) 1,000 mls @ 1,000 mls/hr IV BOLUS ONE Stop: 04/17/22 11:44 Last Infusion: 04/17/22 12:24 Dose: 0 mls/hr Documented By: Admin: 04/17/22 11:01 Dose: 1,000 mls/hr Documented By: KB Vital Signs Vital signs: Vital Signs - 8 hr 04/17/22 11:05 04/17/22 11:13 04/17/22 11:30 Pulse Rate 69 68 Respiratory Rate 12 14 Blood Pressure 137/88 143/86 H Pulse Oximetry 97 100 Oxygen Delivery Method Room Air 04/17/22 11:30 Pulse Rate 71 Respiratory Rate 14 Blood Pressure Pulse Oximetry 99 Oxygen Delivery Method Medical Decision Making Lab Data Result diagrams: 04/17/22 10:54 04/17/22 10:54 Labs: Lab Results 04/17/22 04/17/22 04/17/22 Range/Units 09:25 10:54 10:54 WBC 13.5 H (4.5-11.0) X10^3/uL RBC 3.62 L (4.0-5.2) X10^6/uL Hgb 10.9 L (12.0-16.0) g/dL Hct 31.9 L (36-46) % MCV 88.2 (80-100) fL MCH 30.1 (26-34) PG MCHC 34.1 (30-36) % RDW 13.1 (11.6-14.8) % Plt Count 303 (150-400) X10^3/uL Neut % (Auto) 77.1 H (50-75) % Lymph % (Auto) 16.2 L (25-40) % [place] % (Auto) 5.3 (3-14) % Eos % (Auto) 0.9 L (2-4) % Baso % (Auto) 0.5 (0-2) % Neut # (Auto) 85317 H (0027-7072) /uL Lymph # (Auto) 2200 (9186-0399) /uL [place] # (Auto) 700 (0-900) /uL Eos # (Auto) 100 (0-450) /uL Baso # (Auto) 100 (0-100) /uL Sodium 134 L (137-145) mmol/L Potassium 3.9 (3.4-5.1) mmol/L Chloride 105 (98-107) mmol/L Carbon Dioxide 27 (22-32) mmol/L BUN 8 (7-17) mg/dL Creatinine 0.52 (0.52-1.04) mg/dL Estimated GFR > 60 (>60) mL/min BUN/Creatinine Ratio 15.4 (6-22) Glucose 150 H (70-100) mg/dL Calcium 8.3 L (8.4-10.2) mg/dL Total Bilirubin 0.5 (0.2-1.3) mg/dL AST 17 (14-36) IU/L ALT 12 (<35) IU/L Alkaline Phosphatase 75 (38-126) U/L Total Protein 6.3 (6.3-8.2) g/dL Albumin 3.1 L (3.5-5.0) g/dL Globulin 3.2 (1.7-4.1) g/dL Albumin/Globulin Ratio 1.0 (1.0-2.8) Urine RBC None seen (0-5/HPF) Urine WBC 0-1/hpf (0-5/HPF) Ur Squamous Epith Cells 5-10 /hpf H (0-5/HPF) Urine Bacteria None seen (None) Ur Culture Indicated? Cult not indicated Point of Care Testing Glucose POC 132 Urine Dip Bedside Urine Glucose Negative Bedside Urine Bilirubin - Negative Bedside Urine Ketone - Negative Urine Specific [place] 1.015 Bedside Urine Occult Blood - Negative Bedside Urine pH 6.0 Bedside Urine Protein - Negative Bedside Urine Urobilinogen 0.2 Bedside Urine Nitrite - Negative Bedside Urine Leukocytes + 70 Esterase Point of care testing: Point of Care Testing Glucose POC 132 Urine Dip Bedside Urine Glucose Negative Bedside Urine Bilirubin - Negative Bedside Urine Ketone - Negative Urine Specific [place] 1.015 Bedside Urine Occult Blood - Negative Bedside Urine pH 6.0 Bedside Urine Protein - Negative Bedside Urine Urobilinogen 0.2 Bedside Urine Nitrite - Negative Bedside Urine Leukocytes + 70 Esterase MDM Narrative Medical decision making narrative: Patient glucose is actually within normal limits. sHe is given a L of fluid no sign of DKA. He was seen by her Ob diagnosed with a yeast infection. She does have leukocytes in her urine however no culture is indicated. Recommend she finish her antifungal medication and continue following with low BP. Discharge Plan Departure Patient Disposition: Home Clinical Impression: Type 1 diabetes mellitus Instructions: DI for Diabetes Type 1 -- Adult Activity Restrictions/Additional Instructions: *You have been diagnosed with diabetes *What to do: At this time please continue medication that Dr. Diaz gave you. Blood work today is reassuring. *Continue to take medications as directed *Follow up with your primary care provider in 2-3 days or call [phone] *Return to ER if you should have any new, worsening or concerning symptoms Prescriptions: No Action ondansetron 4 mg tablet,disintegrating 4 mg PO Q8H Qty: 20 2RF insulin aspart U-100 [Novolog Flexpen U-100 Insulin] 100 unit/mL (3 mL) insulin pen 4 - 8 unit SUBCUT TID PRN Lantus U-100 Insulin 100 unit/mL solution 35 unit SUBCUT .hs prenat.vits,georgiana,[id number] Tablet 1 tab PO DAILY metoclopramide HCl [Reglan] 10 mg tablet 10 mg PO Q6H PRN (Reason: nausea and vomiting) Qty: 60 6RF fluconazole [Diflucan] 150 mg tablet 150 mg PO Q3D Qty: 2 4RF Rx Instructions: Repeat second dose 72 hrs after first dose. Referrals: Joe,Navid E, MD [Physician] - Visit Report Forms: Patient Portal/API
[2022-04-17] MEDS: SODIUM CHLORIDE 0.9% 1,000 ML 1000 ML IV (11:01)
[2022-04-17 11:05] VITALS: BP 137/88; PULSE 69; RESP 12; O2SAT 97
[2022-04-17 11:08] LABS: Add Manual Diff / Slide Review NO; Basophils Absolute Auto 100 /uL (0-100); Basophils Percent Auto 0.5 % (0-2); Eosinophils Absolute Auto 100 /uL (0-450); Eosinophils Percent Auto 0.9 % (2-4); Hematocrit 31.9 % (36-46); Hemoglobin 10.9 g/dL (12.0-16.0); Lymphocytes Absolute Auto 2200 /uL (1100-4500); Lymphocytes Percent Auto 16.2 % (25-40); Mean Corpuscular HGB Conc 34.1 % (30-36); Mean Corpuscular Hemoglobin 30.1 PG (26-34); Mean Corpuscular Volume 88.2 fL (80-100); Monocytes Absolute Auto 700 /uL (0-900); Monocytes Percent Auto 5.3 % (3-14); Neutrophils Absolute Auto 10400 /uL (1500-7000); Neutrophils Percent Auto 77.1 % (50-75); Platelet Count 303 X10^3/uL (150-400); Red Blood Cell Count 3.62 X10^6/uL (4.0-5.2); Red Cell Distribution Width 13.1 % (11.6-14.8); White Blood Cell Count 13.5 X10^3/uL (4.5-11.0)
[2022-04-17 11:13] VITALS: PULSE 68; RESP 14; O2SAT 100
[2022-04-17 11:18] LABS: Alanine Aminotransferase 12 IU/L (<35); Albumin 3.1 g/dL (3.5-5.0); Alkaline Phosphatase 75 U/L (38-126); Aspartate Aminotransferase 17 IU/L (14-36); BUN Creatinine Ratio 15.4 (6-22); Bilirubin Total 0.5 mg/dL (0.2-1.3); Blood Urea Nitrogen 8 mg/dL (7-17); Calcium 8.3 mg/dL (8.4-10.2); Carbon Dioxide 27 mmol/L (22-32); Chloride 105 mmol/L (98-107); Estimated Glomerular Filt Rate > 60 mL/min (>60); Globulin 3.2 g/dL (1.7-4.1); Glucose 150 mg/dL (70-100); HEMOLYSIS < 15 (0-50); Potassium 3.9 mmol/L (3.4-5.1); Sodium 134 mmol/L (137-145); Total Protein 6.3 g/dL (6.3-8.2)
[2022-04-17 11:30] VITALS: BP 143/86; PULSE 71; RESP 14; O2SAT 99
== END 2022-04-17 12:25 | disposition home or self-care (01) ==
PROVIDERS: Emergency Provider Emergency Medicine
DX: E10.65 Type 1 diabetes mellitus with hyperglycemia (principal); Z3A.34 34 weeks gestation of pregnancy
CPT/HCPCS: 36415; 80053; 81003; 81015; 82962; 85025; 96360; 99284

== ENCOUNTER 2022-04-20 14:29 | Outpatient (CLI) | payer OTHER, SELFPAY ==
--- NOTE | 2022-04-20 15:14 | P.TNLD_ITS ---
Visit Information Visit Information Date of evaluation: 04/20/22 Primary OB Provider: Navid Diaz On-call OB Provider: Anna Akbar Reason for Evaluation: Yes non-stress test non-stress test reason: diabetes (Type 1) [facility] Medical History (Updated 04/20/22 @ 09:31 by Navid Diaz MD) Anxiety (~10/2020) Chicken pox (~1999) DKA (diabetic ketoacidosis) (~12/2020) IDDM (insulin dependent diabetes mellitus) (~2015) Neuropathy associated with endocrine disorder (~10/2020) Surgical History (Updated 10/23/21 @ 18:18 by Breanna You, ARTURO) [place] teeth extracted Family History (Updated 11/06/21 @ 09:18 by Breanna You RN) Father Diabetes mellitus Colon cancer Brother History of heart disease Scoliosis Hypertension Sister Diabetes mellitus Thyroid disease Grandfather Parkinson's disease Grandmother Dementia Pressure ulcer Grandfather Colon cancer Mother Healthy female adult Grandmother Type 2 diabetes mellitus Social History marital status: number of children: 0 household members: spouse lives independently: Yes caregiver/support person: No housing: apartment pets and animals: Yes (2 dogs: 1 is a little tempermental- aware.) education level: high school occupational status: unemployed current occupational exposures/hazards: No star/adventist: Lutheran special star needs: No seatbelt use: always helmet use: Yes water heater temp set < 120 deg: Yes working smoke detector in home: Yes fire extinguisher in home: Yes carbon monox detector in home: Yes firearms in home: Yes do you feel safe at home: Yes Smoking Status: Never smoker second hand exposure: No ( vaping with non-nicotine products in the house but not near her. ) alcohol intake: former substance use type: does not use during the past year weight has: decreased > 10 lbs well-balanced diet: about half the time caffeine: No Type(s) of exercise: walking and normal ROM and activity frequency: daily duration: 15-30 minutes/day Evaluation Evaluation Baseline heart rate: 130 Variability: Moderate (11-25) monitor accelerations: Present Monitor Decelerations: Absent Category of Tracing: Reactive Diagnosis, Plan/Disposition Plan/Disposition Plan: Assessment: 26-year-old at 35 weeks gestation with type 1 diabetes Reactive nonstress test Plan: kick counts Follow-up with Dr. Diaz as scheduled OB Disposition: home
== END 2022-04-20 15:20 | disposition home or self-care (01) ==
LOC: LABOR 15:06 → OB 04-22 13:15
PROVIDERS: Referring Provider Obstetrics & Gynecology; Visit Provider Obstetrics & Gynecology
DX: O24.013 Pre-existing type 1 diabetes mellitus, in pregnancy, third trimester (principal); Z3A.35 35 weeks gestation of pregnancy
CPT/HCPCS: 59025; G0378; G0379

== ENCOUNTER 2022-04-23 12:29 | Outpatient (CLI) | payer OTHER, SELFPAY ==
--- NOTE | 2022-04-23 13:48 | P.TNLD_ITS ---
Visit Information Visit Information Date of evaluation: 04/23/22 Primary OB Provider: Navid Diaz Reason for Evaluation: Yes non-stress test Comments/Additional reasons for admission: Type 1 DM [facility] Medical History (Updated 04/29/22 @ 15:19 by Navid Diaz MD) Anxiety (~10/2020) Chicken pox (~1999) DKA (diabetic ketoacidosis) (~12/2020) IDDM (insulin dependent diabetes mellitus) (~2015) Neuropathy associated with endocrine disorder (~10/2020) Surgical History (Updated 10/23/21 @ 18:18 by Breanna You RN) [place] teeth extracted Family History (Updated 11/06/21 @ 09:18 by Breanna You RN) Father Diabetes mellitus Colon cancer Brother History of heart disease Scoliosis Hypertension Sister Diabetes mellitus Thyroid disease Grandfather Parkinson's disease Grandmother Dementia Pressure ulcer Grandfather Colon cancer Mother Healthy female adult Grandmother Type 2 diabetes mellitus Social History marital status: number of children: 0 household members: spouse lives independently: Yes caregiver/support person: No housing: apartment pets and animals: Yes (2 dogs: 1 is a little tempermental- aware.) education level: high school occupational status: unemployed current occupational exposures/hazards: No star/samaritan: Episcopalian special star needs: No seatbelt use: always helmet use: Yes water heater temp set < 120 deg: Yes working smoke detector in home: Yes fire extinguisher in home: Yes carbon monox detector in home: Yes firearms in home: Yes do you feel safe at home: Yes Smoking Status: Never smoker second hand exposure: No ( vaping with non-nicotine products in the house but not near her. ) alcohol intake: former substance use type: does not use during the past year weight has: decreased > 10 lbs well-balanced diet: about half the time caffeine: No Type(s) of exercise: walking and normal ROM and activity frequency: daily duration: 15-30 minutes/day Evaluation Evaluation Baseline heart rate: 135 Variability: Average (6-10) monitor accelerations: Present Monitor Decelerations: Absent Status: Category l Diagnosis, Plan/Disposition Final Diagnosis (1) GBS (group B Streptococcus carrier), +RV culture, currently : Status: Acute (2) Peripheral neuropathy due to metabolic disorder: Status: Acute (3) Type 1 diabetes mellitus: Status: Acute (4) : Status: Acute Plan/Disposition OB Disposition: home
== END 2022-04-23 13:20 | disposition home or self-care (01) ==
LOC: OB 04-27 09:47
PROVIDERS: Referring Provider Obstetrics & Gynecology; Visit Provider Obstetrics & Gynecology
DX: O24.013 Pre-existing type 1 diabetes mellitus, in pregnancy, third trimester (principal); E10.9 Type 1 diabetes mellitus without complications; Z3A.35 35 weeks gestation of pregnancy
CPT/HCPCS: 59025; G0378; G0379

== ENCOUNTER 2022-04-27 14:26 | Observation (INO) | payer OTHER, SELFPAY ==
[2022-04-27 15:48] LABS: Add Manual Diff / Slide Review NO; Basophils Absolute Auto 100 /uL (0-100); Basophils Percent Auto 0.6 % (0-2); Eosinophils Absolute Auto 100 /uL (0-450); Eosinophils Percent Auto 1.1 % (2-4); Hematocrit 36.1 % (36-46); Hemoglobin 12.2 g/dL (12.0-16.0); Lymphocytes Absolute Auto 2100 /uL (1100-4500); Lymphocytes Percent Auto 17.9 % (25-40); Mean Corpuscular HGB Conc 33.7 % (30-36); Mean Corpuscular Hemoglobin 29.8 PG (26-34); Mean Corpuscular Volume 88.3 fL (80-100); Monocytes Absolute Auto 600 /uL (0-900); Monocytes Percent Auto 5.5 % (3-14); Neutrophils Absolute Auto 8900 /uL (1500-7000); Neutrophils Percent Auto 74.9 % (50-75); Platelet Count 334 X10^3/uL (150-400); Red Blood Cell Count 4.09 X10^6/uL (4.0-5.2); Red Cell Distribution Width 13.5 % (11.6-14.8); White Blood Cell Count 11.8 X10^3/uL (4.5-11.0)
[2022-04-27 16:12] LABS: Aspartate Aminotransferase 19 IU/L (14-36); BUN Creatinine Ratio 15.2 (6-22); Blood Urea Nitrogen 7 mg/dL (7-17); Estimated Glomerular Filt Rate > 60 mL/min (>60); Uric Acid 3.7 mg/dL (2.5-6.2)
[2022-04-27 17:09] LABS: Protein (Total) Urine Random 6 mg/dL (0-12); Protein Creatinine Ratio Urine 0.07 GRAM/24H
== END 2022-04-27 17:19 | disposition home or self-care (01) ==
PROVIDERS: Obstetrics & Gynecology; Admitting Provider Obstetrics & Gynecology; Referring Provider Obstetrics & Gynecology; Visit Provider Obstetrics & Gynecology
DX: O24.013 Pre-existing type 1 diabetes mellitus, in pregnancy, third trimester (principal); O47.03 False labor before 37 completed weeks of gestation, third trimester; E10.9 Type 1 diabetes mellitus without complications; Z3A.36 36 weeks gestation of pregnancy
CPT/HCPCS: 36415; 82570; 84156; 84450; 84550; 85025; G0378; G0379